=== PATIENT | female | born 2000 | race Caucasian/White ===

== ENCOUNTER 2023-03-24 20:27 | Emergency (ER) | payer OTHER ==
[2023-03-24 20:32] VITALS: BP 116/81; PULSE 81; RESP 18; TEMP 98.1; BMI 38.7
[2023-03-24] MEDS ORDERED: CYCLOBENZAPRINE HCL 10 MG TABLET (FP) PO ONE (22:02)
[2023-03-24] MEDS ORDERED: IBUPROFEN 600 MG TABLET (FP) PO ONE ×2 (22:02→22:34)
[2023-03-24] MEDS ORDERED: ACETAMINOPHEN 500 MG TABLET (FP) PO ONE (22:02)
[2023-03-24] MEDS ORDERED: CYCLOBENZAPRINE HCL 10 MG TABLET (FP) ONE (22:34)
[2023-03-24] MEDS ORDERED: ACETAMINOPHEN 500 MG TABLET (FP) ONE (22:35)
== END 2023-03-24 23:07 | disposition home or self-care (01) ==
LOC: JERFT 20:27
DX: M25.561 Pain in right knee (principal); M25.551 Pain in right hip; V49.50XA Passenger injured in collision with unspecified motor vehicles in traffic accident, initial encounter
CPT/HCPCS: 73502-TC-RT-FY; 73562-TC-RT-FY; 99284-25